=== PATIENT | female | born 1940 | race Caucasian/White ===

== ENCOUNTER 2017-03-01 18:13 | Emergency (ER) | payer MEDICARE, OTHER ==
--- NOTE | 2017-03-01 19:18 | ERNOTE ---
Abdominal HPI - Narrative Date of Service: 03/01/17 - General Chief Complaint: Constipation Time Seen by Provider: 03/01/17 18:32 Source: patient Exam Limitations: no limitations - Immun/Allergies/Home Medications Immunizatons: IMMUNIZATION HX Immunizations Up to Date Yes History of Influenza Vaccine No Hx Pneumococcal Vaccination No Allergies/Adverse Reactions: Allergies gabapentin Allergy (Severe, Verified 03/01/17 18:30) Other aspirin Adverse Reaction (Severe, Verified 03/01/17 18:30) Other Home Medications: HOME MEDICATIONS Carvedilol [Coreg] 6.25 mg PO BID 08/05/15 [Last Taken Unknown] Lorazepam [Ativan] 2 mg PO PRN PRN 08/05/15 [Last Taken Unknown] Lurasidone HCl [Latuda] 10 mg PO DAILY 08/05/15 [Last Taken Unknown] Multivitamin [Poly-Vitamin] 08/05/15 [Last Taken Unknown] Pravastatin Sodium 10 mg PO DAILY 08/05/15 [Last Taken Unknown] metFORMIN HCL [Glucophage] 1,000 mg PO BIDWM 08/05/15 [Last Taken Unknown] traMADol HCL [Ultram] 50 mg PO QID PRN 08/05/15 [Last Taken Unknown] Cefepime HCl [Maxipime] 2 gm IV Q12H 09/28/15 [Last Taken Unknown] Levothyroxine Sodium [Synthroid] 112 mcg PO DAILY 09/28/15 [Last Taken Unknown] Vancomycin HCl in Dextrose 5 % [Vancomycin-D5w 1.5 G/250 ml] 1.5 gm IV DAILY [Last Taken Unknown] - History of Present Illness Narrative: Pt. comes in with c/o constipation for two days. Pt. has a hx of constipation to the point of impaction frequently. Pt. also has a hx of obstruction which she had sx for 3 months ago. Pt. denies any abd pain, NVD, fever, or recent illness. Pt. states taht she took two dulcolax suppositories, two tablespoons of mineral oil and two fleets enemas without results. Review of Systems - Review of Systems Constitutional: Present: no symptoms reported. Absent: recent illness, fever, chills, weakness, fatigue, malaise EYE: Present: no symptoms reported ENT: Present: no symptoms reported Respiratory: Present: no symptoms reported. Absent: shortness of breath, cough , wheezing Cardiology: Present: no symptoms reported. Absent: chest pain, palpitations, edema Gastrointestinal/Abdominal: Present: constipation. Absent: nausea, vomiting, diarrhea, abdominal pain Genitourinary: Present: no symptoms reported Musculoskeletal: Present: no symptoms reported. Absent: back pain, joint pain Skin: Present: no symptoms reported. Absent: rash, change in hair/nails Neurological: Present: no symptoms reported. Absent: headache, dizziness/light- headedness, numbness, tingling All Other Systems: All systems neg except as marked - Patient's Past Medical History Patient History - Medical: Cataracts, Diabetes Type 2, Hypothyroidism Patient History - Cardiac/Respiratory: Myocardial Infarction Patient History - Cancer: No Hx of Cancer Patient History - Surgical Procedures: Appendectomy, Cholecystectomy, Coronary Bypass Surgery, Other Patient History - Other: None - Family History Mother Family History - Medical: , Arthritis, Diabetes Type 2 Family History - Cardiac/Respiratory: Myocardial Infarction Father Family History - Medical: Brother Family History - Medical: - Social History Living Situations: home Abuse History: No History of abuse Psych History: No pertinent hx Smoking Status: Never smoker Alcohol Use: none Drug Use: none - Immunizations Immunizations Up to Date: Yes Hx Pneumococcal Vaccination: No History of Influenza Vaccine: No Physical Exam - Physical Exam General Appearance: Present: wd/wn, alert, no apparent distress Head Exam: Present: normal inspection, no evidence of injury Eye Exam: Normal inspection: bilateral, PERRL: bilateral, EOMI: bilateral Ears, Nose, Throat: Present: normal ENT inspection, normal pharynx Neck: Present: normal inspection, nontender, supple, full range of motion. Absent: lymphadenopathy (R), lymphadenopathy (L) Respiratory: Present: no respiratory distress, normal breath sounds, no accessory muscle use, chest nontender, lungs clear Cardiovascular/Chest: Present: regular rate, rhythm, no murmur, normal peripheral pulses Gastrointestinal/Abdominal: Present: normal bowel sounds, nontender, no organomegaly, distended Rectal Exam: Present: normal rectal tone, tenderness - rectal. Absent: blood- streaked stool, mass, fecal impaction, hemorrhoids Back Exam: Present: normal inspection, normal range of motion, no CVA tenderness , no vertebral tenderness Extremity Exam: Present: normal inspection, non-tender, normal range of motion, no edema Neurological Exam: Present: alert, oriented, normal mood/affect, no motor/ sensory deficits Skin Exam: Present: normal color, warm/dry. Absent: pallor, skin rash ED Progress - Date and Time Seen: Date and Time: 03/01/17 20:18 Pt. had large soft bowel movement. - Vital Signs Patient's Vital Signs:: I have reviewed the patient's vital signs. Vital Signs: Vital Signs 03/01/17 18:25 Temperature 36.9 C Pulse Rate 67 Respiratory 18 Rate Blood Pressure 154/80 O2 Sat by Pulse 98 Oximetry - X-Ray X-Ray #1 X-Ray: abdomen Interpretation: Interp. by me X-ray Comments: No free air, no dilated loops of bowel, and no air fluid levels - Progress/Reassessment Chief Complaint: Constipation Progress:: Improved Departure Clinical Impression: Constipation Qualifiers: Constipation type: unspecified constipation type Qualified Code(s): K59.00 - Constipation, unspecified - Departure Disposition: Home self-care Condition: Good Instructions: Constipation, Adult, [id number] Additional Instructions: Please follow up with Dr Steven in 2-3 days. Please take 1 bottle of magnesium citrate tonight when you get home. Referrals: Lokesh Steven, [Primary Care Provider] -
[2017-03-01] MEDS ORDERED: MAGNESIUM CITRATE 300 ML BTL ONE (20:41)
[2017-03-01] MEDS: MAGNESIUM CITRATE 300 ML BTL PO ONE ×2 (20:50→20:56)
[2017-03-01 21:12] VITALS: BP 138/78
== END 2017-03-01 21:00 | disposition home or self-care (01) ==
LOC: ER 18:13
DX: K59.00 Constipation, unspecified (principal); I25.2 Old myocardial infarction; E03.9 Hypothyroidism, unspecified

== ENCOUNTER 2017-05-10 12:21 | Observation (INO) | payer MEDICARE, OTHER ==
[2017-05-10] MEDS ORDERED: NORMAL SALINE 1,000 ML IV ONE (12:34)
[2017-05-10 12:58] LABS: Hematocrit 43.1 % (37.0-47.0); Hemoglobin 14.6 gm/dL (12.5-16.0); Mean Corpuscular Hemoglobin 29.1 pg (27-31); Mean Corpuscular Hgb Conc 33.9 g/dl (32-36); Mean Platelet Volume 9.8 fl (6.0-9.5); Neutrophil % 72.4 % (42-75.0); Platelet Count 227 K/mm3 (150-450); Red Blood Count 5.01 M/mm3 (4.2-5.4); Red Cell Distribution Width 14.1 % (11.5-14.0); White Blood Count 8.2 K/mm3 (4.0-10.5)
[2017-05-10 13:08] LABS: Prothrombin Time (Patient) 11.4 Seconds (9.0-11.0)
[2017-05-10 13:14] LABS: INR 1.14 INR (0.90-1.10)
[2017-05-10 13:18] LABS: Urine Appearance Slightly Cloudy; Urine Bacteria 1+; Urine Bilirubin 3 mg/dl (NEGATIVE); Urine Blood 5 /ul (NEGATIVE); Urine Color Amber; Urine Hyaline Cast >25 /LPF; Urine Ketone 5 mg/dL (NEGATIVE); Urine Nitrite Negative (NEGATIVE); Urine Protein 15 mg/dL (NEGATIVE); Urine RBC 0-5 /hpf (0-5); Urine Specific Gravity >=1.030 SP.GR. (1.005-1.010); Urine Urobilinogen Normal (NORMAL); Urine WBC TRACE /hpf (0-5)
[2017-05-10 13:18] LABS: ALT 26 U/L (19-67); AST 31 U/L (0-48); Albumin * 3.4 gm/dl (3.4-5.0); Alkaline Phosphatase * 56 U/L (50-170); Anion Gap 14.7 mmol/L (6.8-13.8); BUN/Creatinine Ratio 18.1 (9.0-21.6); Bilirubin, Total 0.6 mg/dL (0.0-1.1); Blood Urea Nitrogen 23 mg/dL (3-23); Ca. Corrected For Albumin 8.9 mg/dL (8.4-10.2); Calcium * 8.7 mg/dL (7.9-10.9); Carbon Dioxide 26.2 mmol/L (24-32.6); Chloride 96 mmol/L (97-106); Glucose * 181 mg/dL (70-110); Potassium 3.9 mmol/L (3.4-4.6); Sodium 133 mmol/L (132-142); Total Protein 7.9 gm/dL (6.2-8.2); Troponin I Less than 0.017 ng/ml (0.00-0.10)
--- NOTE | 2017-05-10 13:22 | ERNOTE ---
Chest Pain/Cardiac HPI Date of Service: 05/10/17 Chief Complaint: Chest Pain Time Seen by Provider: 05/10/17 12:25 Source: patient Exam Limitations: no limitations Immunizations: IMMUNIZATION HX Immunizations Up to Date Yes History of Influenza Vaccine Yes Hx Pneumococcal Vaccination Yes Allergies/Adverse Reactions: Allergies aspirin Allergy (Intermediate, Verified 05/10/17 12:36) BLEEDING ULCERS gabapentin Adverse Reaction (Intermediate, Verified 05/10/17 12:36) HALLUCINATIONS Home Medications: HOME MEDICATIONS Pravastatin Sodium 10 mg PO HS 08/05/15 [Last Taken Unknown] Levothyroxine Sodium [Synthroid] 112 mcg PO DAILY 09/28/15 [Last Taken Unknown] Clopidogrel Bisulfate [Plavix] 75 mg PO DAILY 03/01/17 [Last Taken Unknown] Blood-Glucose Meter [Blood Glucose Monitoring] 1 each MC DAILY 05/04/17 [Last Taken Unknown] Carvedilol [Coreg] 6.25 mg PO BID 05/04/17 [Last Taken Unknown] Docusate Sodium [Colace] 200 mg PO HS PRN 05/04/17 [Last Taken Unknown] Fluticasone Propionate [Flonase] 2 spray NS DAILY 05/04/17 [Last Taken Unknown] Garlic [Odor Free Garlic] 100 mg PO DAILY 05/04/17 [Last Taken Unknown] Lurasidone HCl [Latuda] 10 mg PO DAILY 05/04/17 [Last Taken Unknown] Multivitamins [Multivitamin Jacy] 1 cap PO DAILY 05/04/17 [Last Taken Unknown] metFORMIN HCL [Glucophage] 1,000 mg PO BIDWM 05/04/17 [Last Taken Unknown] Levofloxacin [Levaquin] 500 mg PO DAILY 05/10/17 [Last Taken Unknown] Narrative: Patient presents to the ED for chest pain from the walk in clinic. She has been having off and on CP since last night. Nothing seems to make it worse clearly, possibly cough. She is not sure if she has had this before. She has been being treated for cough and bronchitis with ABc. This am she was very dizzy and nearly passed out. No feveres. She alsop relates a dark bowel movement this am. No syncope. Family feels she is more confused than normal. Timing: intermittent Severity/Quality: moderate Location: left chest Chest Pain Radiation: no radiation Activities at Onset: other - cough Modifying Factors - Improves: Present: nothing Modifying Factors - Worsens: Present: other - cough Aspirin Treatment Today: no aspirin today Associated Symptoms: Present: dizziness, cough. Absent: syncope, nausea, vomiting, abdominal pain Prior Treatment: Reports: recently seen, currently on antibiotics Review of Systems - Review of Systems Constitutional: Absent: fever EYE: Present: no symptoms reported ENT: Absent: sore throat Respiratory: Present: cough. Absent: shortness of breath Cardiology: Present: chest pain Gastrointestinal/Abdominal: Absent: abdominal pain Genitourinary: Absent: dysuria Skin: Absent: rash Neurological: Absent: weakness All Other Systems: All systems neg except as marked - Patient's Past Medical History Patient History - Medical: Cataracts, Diabetes Type 2, GERD, Hypothyroidism Patient History - Cardiac/Respiratory: Myocardial Infarction Patient History - Cancer: No Hx of Cancer Patient History - Surgical Procedures: Appendectomy, Cholecystectomy, Coronary Bypass Surgery, Other Patient History - Other: None LMP (females 10-50): Menopausal - Family History Mother Family History - Medical: , Arthritis, Diabetes Type 2 Family History - Cardiac/Respiratory: Myocardial Infarction Father Family History - Medical: Brother Family History - Medical: - Social History Living Situations: home Abuse History: No History of abuse Psych History: No pertinent hx Smoking Status: Never smoker Alcohol Use: sober Drug Use: none - Immunizations Immunizations Up to Date: Yes Hx Pneumococcal Vaccination: Yes History of Influenza Vaccine: Yes Physical Exam - Physical Exam General Appearance: Present: alert, no apparent distress Head Exam: Present: normal inspection, no evidence of injury Eye Exam: Normal inspection: bilateral, PERRL: bilateral Ears, Nose, Throat: Present: dry mucous membranes. Absent: pharyngeal erythema Neck: Present: normal inspection Respiratory: Present: no respiratory distress, normal breath sounds, no accessory muscle use, lungs clear, other - mild left anterior chest tenderness Cardiovascular/Chest: Present: regular rate, rhythm Gastrointestinal/Abdominal: Present: normal bowel sounds, nontender, nondistended, soft Back Exam: Present: normal range of motion Extremity Exam: Present: no edema, other - no claf tenderness Neurological Exam: Present: alert, no motor/sensory deficits Skin Exam: Present: normal color, warm/dry ED Progress - Results and Orders Patient's Lab Results:: I have reviewed the patient's lab results. - Vital Signs Patient's Vital Signs:: I have reviewed the patient's vital signs. Vital Signs: Vital Signs 05/10/17 05/10/17 12:25 13:11 Temperature 37.5 C Pulse Rate 83 84 Respiratory 17 18 Rate Blood Pressure 121/72 144/86 O2 Sat by Pulse 97 100 Oximetry - EKG EKG: NSR EKG read: Interp. by me EKG Comments: NSR rate 79. Non-specific ST/T wave changes, no evidence of STEMI - X-Ray X-Ray #1 X-Ray: chest Interpretation: Interp. by me X-ray Comments: I reviewed official radiology report and viewed images. - Progress/Reassessment Chief Complaint: Chest Pain Progress Note-Subjective: 05/10/17 13:45 I discussed results. IV ABx ordered. D/W Dr Steven, admit obs. Departure Clinical Impression: Chest pain, Dizziness, UTI (urinary tract infection) - Departure Disposition: [facility] Condition: Stable
[2017-05-10] MEDS ORDERED: LEVOFLOXACIN IN DEXTROSE 5 % 500 MG/100 ML BAG IV SCH (13:45)
[2017-05-10] MEDS ORDERED: DOCUSATE SODIUM 100 MG CAPSULE PO PRN (16:15)
[2017-05-10] MEDS ORDERED: BENZONATATE 100 MG CAPSULE PO PRN (17:14)
--- NOTE | 2017-05-10 17:14 | HP ---
Chief Complaint - Chief Complaint Date of Service: 05/10/17 Time of Service: 16:56 Chief Complaint: Chest Pain, Cough History of Present Illness: Nayeli is a 76 yo female with significant PMH of coronary artery disease with CABG, Diabetes Mellitus Type II, and recently declining memory. She has had progressive shortness of breath, cough, and chest pain over the last two weeks. She was started on antibiotics last week in the Walk In [facility], but on follow up with the Walk in clinic this week she had not been taking it appropriately. She was given a new prescription for Levaquin, but on reports today it does not appear she has been taking this daily as well. Last night and today she started having more significant chest pain that she describes as pain with coughing. Due to her history of Coronary Artery Disease with CABG she presented to the ER with her chest pain. Initial evaluation in the ER shows no significant ECG changes and a undetectable troponin. Chest xray shows bronchitis , no pneumonia. No leukocytosis. Of note she has also had lumbar back pain from spinal stenosis and was scheduled for WINSTON today. She was supposed to be holding plavix prior to WINSTON, but she reports taking Plavix thinking it was her blood pressure medication. She did not go to her scheduled WINSTON today as she was in the Emergency room and would like to clear up her cough before she reschedules her WINSTON. She does report back is still hurting. - Patient's Past Medical History Patient History - Medical: Cataracts, Diabetes Type 2, GERD, Hypothyroidism, Other - Dementia, Lumbar Spinal Stenosis Patient History - Cardiac/Respiratory: Myocardial Infarction Patient History - Cancer: No Hx of Cancer Patient History - Surgical Procedures: Appendectomy, Cholecystectomy, Coronary Bypass Surgery, Other Patient History - Other: None LMP (females 10-50): Menopausal - Family History Mother Family History - Medical: , Arthritis, Diabetes Type 2 Family History - Cardiac/Respiratory: Myocardial Infarction Father Family History - Medical: Brother Family History - Medical: - Social History Living Situations: home Abuse History: No History of abuse Psych History: No pertinent hx Smoking Status: Never smoker Have you smoked in the past 12 months: No Alcohol Use: sober Drug Use: none - Immunizations Immunizations Up to Date: Yes Hx Pneumococcal Vaccination: Yes History of Influenza Vaccine: Yes Review Of Systems (GEN) - Review of Systems Generalized/Overall Review: Present: Weakness, Chills, Fever, Malaise, Diaphoresis, Fatigue EENTM: Present: No Symptoms Reported Respiratory: Present: Cough, Shortness of Breath Cardiac: Present: Chest Pain. Absent: Edema, Palpitations Abdominal: Present: Vomiting, Melena. Absent: Nausea Musculoskeletal: Present: Back Pain Neurological: Present: Anxiety, Weakness Skin: Present: No Symptoms Reported Endocrine: Present: No Symptoms Reported Immunizations: IMMUNIZATION HX Immunizations Up to Date Yes History of Influenza Vaccine Yes Hx Pneumococcal Vaccination Yes Allergies/Adverse Reactions: Allergies Allergy/AdvReac Type Severity Reaction Status Date / Time aspirin Allergy Intermediate BLEEDING Verified 05/10/17 14:57 ULCERS gabapentin AdvReac Intermediate HALLUCINATI Verified 05/10/17 14:57 ONS Home Medications: HOME MEDICATIONS Pravastatin Sodium 10 mg PO HS 08/05/15 [Last Taken Unknown] Levothyroxine Sodium [Synthroid] 112 mcg PO DAILY 09/28/15 [Last Taken Unknown] Clopidogrel Bisulfate [Plavix] 75 mg PO DAILY 03/01/17 [Last Taken Unknown] Blood-Glucose Meter [Blood Glucose Monitoring] 1 each MC DAILY 05/04/17 [Last Taken Unknown] Carvedilol [Coreg] 6.25 mg PO BID 05/04/17 [Last Taken Unknown] Docusate Sodium [Colace] 200 mg PO HS PRN 05/04/17 [Last Taken Unknown] Fluticasone Propionate [Flonase] 2 spray NS DAILY 05/04/17 [Last Taken Unknown] Garlic [Odor Free Garlic] 100 mg PO DAILY 05/04/17 [Last Taken Unknown] Lurasidone HCl [Latuda] 10 mg PO DAILY 05/04/17 [Last Taken Unknown] Multivitamins [Multivitamin Jacy] 1 cap PO DAILY 05/04/17 [Last Taken Unknown] metFORMIN HCL [Glucophage] 1,000 mg PO BIDWM 05/04/17 [Last Taken Unknown] Levofloxacin [Levaquin] 500 mg PO DAILY 05/10/17 [Last Taken Unknown] Exam - Exam Vital Signs: Vital Signs - Last Taken Temp 36.3 C L 05/10/17 14:13 Pulse 77 05/10/17 15:19 Resp 18 05/10/17 14:13 BP 173/86 05/10/17 14:13 Pulse Ox 97 05/10/17 14:13 Constitutional: Present: Alert, Oriented x3, Cooperative, Other - Mild anxiety ENT Exam: Present: hearing grossly normal Eye Exam: bilateral eye: normal inspection Respiratory: Present: lungs clear, normal breath sounds, no respiratory distress Cardiovascular/Chest: Present: regular rate, rhythm, no edema, no murmur Abdomen: Present: Normal bowel sounds, soft, nontender, nondistended Extremity: Present: normal inspection, no pedal edema Skin Exam: Present: normal color, warm/dry, no cyanosis Appearance: Present: appropriate appearance, appropriate insight, impaired recent memory Eye contact: Present: cooperative, good eye contact, normal speech Thoughts: Present: normal thought pattern, no apparent hallucination Diagnostic Studies: Laboratory Results WBC 8.2 K/mm3 (4.0-10.5) 05/10/17 12:47 RBC 5.01 M/mm3 (4.2-5.4) 05/10/17 12:47 Hgb 14.6 gm/dL (12.5-16.0) 05/10/17 12:47 Hct 43.1 % (37.0-47.0) 05/10/17 12:47 MCV 86.0 fl (78-100) 05/10/17 12:47 MCH 29.1 pg (27-31) 05/10/17 12:47 MCHC 33.9 g/dl (32-36) 05/10/17 12:47 RDW 14.1 % (11.5-14.0) H 05/10/17 12:47 Plt Count 227 K/mm3 (150-450) 05/10/17 12:47 MPV 9.8 fl (6.0-9.5) H 05/10/17 12:47 Immature Gran % (Auto) 0.40 % (0.001-0.429) 05/10/17 12:47 Immature Gran # (Auto) 0.03 K/mm3 (0.000-0.0310) 05/10/17 12:47 Neutrophils % 72.4 % (42-75.0) 05/10/17 12:47 Lymphocytes % 15.4 % (20-51) L 05/10/17 12:47 Monocytes % 11.2 % (0.0-9) H 05/10/17 12:47 Eosinophils % 0.1 % (0.0-3.0) 05/10/17 12:47 Basophils % 0.5 % (0.0-1.0) 05/10/17 12:47 Nucleated RBC % 0.0 k/mm3 (0-1) 05/10/17 12:47 Neutrophils # 6.0 K/mm3 (1.3-6.0) 05/10/17 12:47 Lymphocytes # 1.3 k/mm3 (1.5-3.5) L 05/10/17 12:47 Monocytes # 0.9 k/mm3 (0.0-1.0) 05/10/17 12:47 Eosinophils # 0.0 k/mm3 (0.0-0.7) 05/10/17 12:47 Absolute Basophils 0.0 k/mm3 (0.0-0.1) 05/10/17 12:47 PT 11.4 Seconds (9.0-11.0) H 05/10/17 12:47 INR (Anticoag Therapy) 1.14 INR (0.90-1.10) H 05/10/17 12:47 Sodium 133 mmol/L (132-142) 05/10/17 12:47 Plasma Sodium 134 mmol/L (130-142) 05/10/17 12:47 Potassium 3.9 mmol/L (3.4-4.6) 05/10/17 12:47 Chloride 96 mmol/L (97-106) L 05/10/17 12:47 Carbon Dioxide 26.2 mmol/L (24-32.6) 05/10/17 12:47 Anion Gap 14.7 mmol/L (6.8-13.8) H 05/10/17 12:47 BUN 23 mg/dL (3-23) 05/10/17 12:47 Creatinine 1.27 mg/dL (0.4-1.4) 05/10/17 12:47 Est GFR (Non-Af Amer) 44 mL/min (60-130) L D 05/10/17 12:47 BUN/Creatinine Ratio 18.1 (9.0-21.6) 05/10/17 12:47 Random Glucose 181 mg/dL (70-110) H 05/10/17 12:47 Lactic Acid, Venous 1.8 mmol/L (0.4-1.9) 05/10/17 15:45 Calcium 8.7 mg/dL (7.9-10.9) 05/10/17 12:47 Calcium Adj for Albumin 8.9 mg/dL (8.4-10.2) 05/10/17 12:47 Total Bilirubin 0.6 mg/dL (0.0-1.1) 05/10/17 12:47 AST 31 U/L (0-48) 05/10/17 12:47 ALT 26 U/L (19-67) 05/10/17 12:47 Alkaline Phosphatase 56 U/L (50-170) 05/10/17 12:47 Troponin I Less than 0.017 ng/ml (0.00-0.10) 05/10/17 12:47 Total Protein 7.9 gm/dL (6.2-8.2) 05/10/17 12:47 Albumin 3.4 gm/dl (3.4-5.0) 05/10/17 12:47 Urine Color Estefanía 05/10/17 12:37 Urine Appearance Slightly cloudy 05/10/17 12:37 Urine pH 5.0 pH (5.0-7.0) 05/10/17 12:37 Ur Specific [place] >=1.030 SP.GR. (1.005-1.010) 05/10/17 12:37 Urine Protein 15 mg/dL (NEGATIVE) H 05/10/17 12:37 Urine Glucose (UA) Negative mg/dL (NEGATIVE) 05/10/17 12:37 Urine Ketones 5 mg/dL (NEGATIVE) 05/10/17 12:37 Urine Blood 5 /ul (NEGATIVE) H 05/10/17 12:37 Urine Nitrate Negative (NEGATIVE) 05/10/17 12:37 Urine Bilirubin 3 mg/dl (NEGATIVE) H 05/10/17 12:37 Urine Ictotest Negative (NEGATIVE) 05/10/17 12:37 Prot Sulfosalicylic Acd 1+ mg/dL (0) 05/10/17 12:37 Urine Urobilinogen Normal EU/dl (NORMAL) 05/10/17 12:37 Ur Leukocyte Esterase Negative /ul (NEGATIVE) 05/10/17 12:37 Urine RBC 0-5 /hpf (0-5) 05/10/17 12:37 Urine WBC Trace /hpf (0-5) H 05/10/17 12:37 Ur Epithelial Cells 10-25 /hpf (0-5) H 05/10/17 12:37 Urine Bacteria 1+ (NONE) H 05/10/17 12:37 Hyaline Casts >25 /LPF (NONE) H 05/10/17 12:37 Urine Culture Comments No culture indicated 05/10/17 12:37 Stool Occult Blood Negative 05/10/17 13:10 Assessment/Plan - Narrative Narrative: Nayeli is a 76 yo female with: 1) Chest Pain - Risk factors of CAD with CABG, DMII, will admit to observation. Initial evaluation negative for acute [place]. Will get serial troponin. Will monitor on telemetry. I suspect chest pain is secondary to bronchitis. 2) Acute Bronchitis - Treat with Levaquin 500mg Daily x 10 days. Will start this from Day 1. Although she was given this rx days ago, unclear if she has been taking this appropriately. No wheezing on exam no albuterol or steroids needed. No pneumonia on chest xray. 3) Dementia - Patient showing signs of dementia. This is worsening per reports from son. She has had a lot of confusion lately that may be precipitated from infection or the progression of her dementia. Will monitor. Consider aricept vs sertraline. She would benefit from home health for medication management. 4) Generalized Anxiety Disorder/Depression - I believe she would benefit from starting Sertraline. Will consider starting this at discharge. Symptoms may be exacerbated from acute infection but I believe she has underlying anxiety/ depression. 5) Diabetes - Continue home meds, hold metformin while in the hospital. 6) Social - Will admit to observation to evaluate for acute [place]. Expect 1 midnight stay. Plan to discharge to home tomorrow. Will look into home discharge with home health for medication management, possible PT for strengthening. - Assessment/Plan (1) Acute bronchitis Problem: Acute (2) Dementia Problem: Acute (3) Generalized anxiety disorder Problem: Acute (4) Depression Problem: Acute (5) Diabetes mellitus type II, non insulin dependent Problem: Acute (6) Chest pain Problem: Acute
[2017-05-10] MEDS ORDERED: SIMVASTATIN 5 MG TABLET PO SCH (21:00)
[2017-05-10] MEDS: CARVEDILOL 6.25 MG TABLET PO SCH (22:03)
[2017-05-11 06:08] LABS: Hemoglobin 13.2 gm/dL (12.5-16.0); Mean Cell Volume 84.6 fl (78-100); Mean Corpuscular Hemoglobin 29.4 pg (27-31); Mean Corpuscular Hgb Conc 34.7 g/dl (32-36); Mean Platelet Volume 10.3 fl (6.0-9.5); Neutrophil # 2.3 K/mm3 (1.3-6.0); Platelet Count 180 K/mm3 (150-450); Red Blood Count 4.49 M/mm3 (4.2-5.4); Red Cell Distribution Width 13.9 % (11.5-14.0); White Blood Count 4.2 K/mm3 (4.0-10.5)
[2017-05-11 06:38] LABS: Albumin * 2.7 gm/dl (3.4-5.0); Anion Gap 11.4 mmol/L (6.8-13.8); BUN/Creatinine Ratio 20.4 (9.0-21.6); Bilirubin, Total 0.5 mg/dL (0.0-1.1); Calcium * 8.3 mg/dL (7.9-10.9); Carbon Dioxide 25.3 mmol/L (24-32.6); Potassium 3.7 mmol/L (3.4-4.6); Total Protein 6.6 gm/dL (6.2-8.2)
[2017-05-11] MEDS ORDERED: LEVOTHYROXINE SODIUM 112 MCG TABLET PO SCH (07:00)
[2017-05-11] MEDS ORDERED: CLOPIDOGREL BISULFATE 75 MG TABLET PO SCH (09:00)
[2017-05-11] MEDS ORDERED: LURASIDONE HCL 10 MG PO SCH (09:00)
[2017-05-11] MEDS ORDERED: LEVOFLOXACIN 500 MG TABLET PO SCH (09:00)
[2017-05-11] MEDS ORDERED: MULTIVITAMINS 1 CAP CAPSULE PO SCH (09:00)
[2017-05-11] MEDS ORDERED: FLUTICASONE PROPIONATE 120 SPRAY INHALER NS SCH (09:00)
[2017-05-11] MEDS: CARVEDILOL 6.25 MG TABLET PO SCH (09:26)
[2017-05-11 10:20] VITALS: BP 133/74
--- NOTE | 2017-05-11 12:01 | DS ---
(1) Acute bronchitis Problem: Acute (2) Dementia Problem: Acute (3) Generalized anxiety disorder Problem: Acute (4) Depression Problem: Acute (5) Diabetes mellitus type II, non insulin dependent Problem: Acute (6) Chest pain Problem: Acute Description of Stay: Nayeli was admitted to observation due to shortness of breath, chest pain, and increased confusion. Chest xray and bloodwork obtained indicated source was likely from acute bronchitis. She was negative for acute [place] and repeat troponins showed no evidence of myocardial injury. She was treated with breathing treatments and antibiotics and improved. Due to being admitted she missed her scheduled WINSTON, however due to the confusion she had been holding her Coreg instead of the plavix. Feeling better she was discharged to home the following day and the WINSTON will be rescheduled once the bronchitis has resolved. Procedures Performed: none Discharge Disposition: Home self care Disposition: Home self-care Condition: Good Discharge Activity: Activity as tolerated Discharge Diet: Consistent carbs Referrals: Lokesh Steven DO [Primary Care Provider] - One Week Problem Oriented Discharge Instructions to Patient/Family: Acute Bronchitis, [id number] Additional Patient Instructions (free text): -Please make TCM appointment unless care home discharge. Thank you! Gissel @ [phone]. Follow-up with Dr. Steven on 05/21/17 10:00 am. [facility], please call and fax discharge information. Complete Home Medications List: Complete Home Medication List: Pravastatin Sodium 10 mg PO HS 08/05/15 Levothyroxine Sodium [Synthroid] 112 mcg PO DAILY 09/28/15 Clopidogrel Bisulfate [Plavix] 75 mg PO DAILY 03/01/17 Blood-Glucose Meter [Blood Glucose Monitoring] 1 each MC DAILY 05/04/17 Carvedilol [Coreg] 6.25 mg PO BID 05/04/17 Docusate Sodium [Colace] 200 mg PO HS PRN 05/04/17 Fluticasone Propionate [Flonase] 2 spray NS DAILY 05/04/17 Garlic [Odor Free Garlic] 100 mg PO DAILY 05/04/17 Lurasidone HCl [Latuda] 10 mg PO DAILY 05/04/17 Multivitamins [Multivitamin Jacy] 1 cap PO DAILY 05/04/17 metFORMIN HCL [Glucophage] 1,000 mg PO BIDWM 05/04/17
== END 2017-05-11 13:12 | disposition home or self-care (01) ==
LOC: ER 12:21 → MS 13:42
PROVIDERS: ADMIT Family Medicine; ATTEND Family Medicine
DX: J20.9 Acute bronchitis, unspecified (principal); F03.90 Unspecified dementia, unspecified severity, without behavioral disturbance, psychotic disturbance, mood disturbance, and anxiety; F41.8 Other specified anxiety disorders; E11.9 Type 2 diabetes mellitus without complications; R07.9 Chest pain, unspecified; I25.810 Atherosclerosis of coronary artery bypass graft(s) without angina pectoris; I25.2 Old myocardial infarction; E03.9 Hypothyroidism, unspecified; Z68.29 Body mass index [BMI] 29.0-29.9, adult
CPT/HCPCS: 36415; 71046; 80053; 81001; 82272; 83605; 84484; 85025; 85610; 87040; 87086; 93005; 99285; G0378

== ENCOUNTER 2017-05-29 08:52 | Day surgery (SDC) | payer MEDICARE, OTHER ==
[2017-05-29 09:07] VITALS: BP 148/63
--- NOTE | 2017-05-29 15:44 | OR ---
Anesthesia Pre Procedure Eval Date of Service: 05/29/17 Pre Procedure Evaluation: Last Vital Signs Temp 37.3 C 05/29/17 09:06 Pulse 61 05/29/17 09:06 Resp 16 05/29/17 09:06 BP 148/63 05/29/17 09:06 Pulse Ox 99 05/29/17 09:06 Anesthesia Pre Procedure Evaluation DATE: 05/29/2017. TIME: 1015. INDICATIONS: Low back and right leg pain. PAST MEDICAL HISTORY: This is a 76-year-old female with a history of chronic back pain and right leg discomfort. She has had multiple steroid procedures performed by her physician in [place] as well as 1 CT guided neural foraminal injection performed in radiology in the fall of 2016. She states she had little to no relief with the last procedure performed. The patient wishes that we can perform the same procedure that she had in [place]. There is a little confusion as to the actual procedure and medications used so I have obtained patient's consent for transfer of medical records, and contacted her prior provider for reports of her last procedures. EXAM: CT report and films were reviewed. ASSESSMENT OF MEDICAL STATUS: O.K. to proceed with steroid injection after reviewing her past steroid injections. PLANNED PROCEDURE: Pending. Home Medications: HOME MEDICATIONS Pravastatin Sodium 10 mg PO HS 08/05/15 [Last Taken Unknown] Levothyroxine Sodium [Synthroid] 112 mcg PO DAILY 09/28/15 [Last Taken Unknown] Clopidogrel Bisulfate [Plavix] 75 mg PO DAILY 03/01/17 [Last Taken 05/22/17] Blood-Glucose Meter [Blood Glucose Monitoring] 1 each MC DAILY 05/04/17 [Last Taken Unknown] Carvedilol [Coreg] 6.25 mg PO BID 05/04/17 [Last Taken Unknown] Docusate Sodium [Colace] 200 mg PO HS PRN 05/04/17 [Last Taken Unknown] Fluticasone Propionate [Flonase] 2 spray NS DAILY 05/04/17 [Last Taken Unknown] Garlic [Odor Free Garlic] 100 mg PO DAILY 05/04/17 [Last Taken Unknown] Lurasidone HCl [Latuda] 10 mg PO DAILY 05/04/17 [Last Taken Unknown] Multivitamins [Multivitamin Jacy] 1 cap PO DAILY 05/04/17 [Last Taken Unknown] metFORMIN HCL [Glucophage] 1,000 mg PO BIDWM 05/04/17 [Last Taken Unknown]
== END 2017-05-29 08:53 | disposition home or self-care (01) ==
LOC: AMB 08:52
PROVIDERS: ATTEND Family Medicine
DX: M54.5 Low back pain (principal)

== ENCOUNTER 2017-05-31 11:12 | Day surgery (SDC) | payer MEDICARE, OTHER ==
[2017-05-31] MEDS ORDERED: TRIAMCINOLONE ACETONIDE 40 MG/ML VIAL IM ONE (13:30)
[2017-05-31] MEDS ORDERED: LIDOCAINE HCL/PF 5 ML VIAL IJ ONE (13:30)
--- NOTE | 2017-05-31 13:33 | OR ---
Anesthesia Pre Procedure Eval Date of Service: 05/31/17 Pre Procedure Evaluation: Last Vital Signs Temp 37.6 C H 05/31/17 11:30 Pulse 58 L 05/31/17 11:30 Resp 16 05/31/17 11:30 BP 144/77 05/31/17 11:30 Pulse Ox 98 05/31/17 11:30 Anesthesia Pre Procedure Evaluation DATE: 05/31/2017 TIME: 1255 INDICATIONS: Right low back pain PAST MEDICAL HISTORY: Ms. Hernandez has had a long, she but the pain does become extremely incapacitating at times. She has been scheduled several times previously and has been canceled for multiple reasons, most recent of which is confusion over the course of her treatment. According to Ms. Hernandez she had 2 previous injections nearly 7 years ago, the first of which was of no help and the second was of great relief for a long period of time. According to the notes of Dr. Nix she received an L3 selective nerve root injection both times , and both times the medication combination was Kenalog 40 mg with 3 mL of saline. When I met Ms. Hernandez she was insistent that medicine be identical and one of the medicines was Novocain. After a long discussion with her and showing her both records of the injections she agreed to have Kenalog 40 mg with a local medication for the injection. It was pointed out that the Kenalog is not recommended by [employer] to be for any neuraxial type injection. Also of note I compared the CT-guided neural foraminal injection which she received in our x-ray department in the medicines were used as well. She was quite animated and return at only 1 injection out of all of these ever get her any good and she was trying to re-create the same medicines and procedure which was performed she did receive good relief 7 years ago. History of GERD: No History of smoking:No History of sleep apnea:No EXAM: Heart regular; lungs clear ASSESSMENT OF MEDICAL STATUS: History is very difficult to achieve, but her symptoms lead me to believe that this may be of some benefit to her. It is hard to tell whether she may be better served with any other type procedure, perhaps a standard epidural injection, but I am agreeable to proceeding as the patient wishes. PLANNED PROCEDURE: Right L3 selective nerve root injection. Transforaminal approach Home Medications: HOME MEDICATIONS Pravastatin Sodium 10 mg PO HS 08/05/15 [Last Taken Unknown] Levothyroxine Sodium [Synthroid] 112 mcg PO DAILY 09/28/15 [Last Taken Unknown] Clopidogrel Bisulfate [Plavix] 75 mg PO DAILY 03/01/17 [Last Taken 05/22/17] Blood-Glucose Meter [Blood Glucose Monitoring] 1 each MC DAILY 05/04/17 [Last Taken Unknown] Carvedilol [Coreg] 6.25 mg PO BID 05/04/17 [Last Taken Unknown] Docusate Sodium [Colace] 200 mg PO HS PRN 05/04/17 [Last Taken Unknown] Fluticasone Propionate [Flonase] 2 spray NS DAILY 05/04/17 [Last Taken Unknown] Multivitamins [Multivitamin Jacy] 1 cap PO DAILY 05/04/17 [Last Taken Unknown] metFORMIN HCL [Glucophage] 1,000 mg PO BIDWM 05/04/17 [Last Taken Unknown]
--- NOTE | 2017-05-31 13:39 | OR ---
Anesthesia Procedure Note - Anesthesia Procedure Note Date of Service: 05/31/17 Narrative: Vital Signs - Last Taken Temp 37.6 C H 05/31/17 11:30 Pulse 58 L 05/31/17 11:30 Resp 16 05/31/17 11:30 BP 144/77 05/31/17 11:30 Pulse Ox 98 05/31/17 11:30 05/31/17 13:34 ANESTHESIA PROCEDURE NOTE Date of Procedure: 05/31/2017 Time of procedure: 1310. Performed by: KAR Adams CRNA, MSN Wet Pan Operator: Monica Villalobos RN. Preprocedure diagnosis: Right L3 transforaminal injection. Post procedure diagnosis: Same. Procedure: Transforaminal block right L3. Indications: Low back pain, right sided. Findings: See below. Details of the procedure: The patient was brought to OR #2 and was placed in the prone position. The back was prepped with DuraPrep and draped in a sterile fashion. The lumbar area was under fluoroscopy and after adjusting the C-arm to a plane perpendicular to the intended lumbar vertebral level, a straight needle hdez was used to identify the level of treatment. An oblique view was then obtained to identify the angle of entry and the area was localized with 1% lidocaine solution and a 22ga Toribio needle oriented down the beam of the fluoroscopy tube. Reorienting the C-arm to a lateral view the needle was then positioned to the upper part of the neural foraminal opening and 0.5 mL of Isovue-200 was injected demonstrating a distribution following the corresponding nerve and some retrograde into the epidural area. 1.5 mL of lidocaine 1% preservative-free with 5 mg of preservative-free dexamethasone was then injected, the stylette was replaced and the spinal needle removed. A Band -Aid was then applied to the injection site,the patient returned to the OR stretcher with good relief of pain and was then returned to [facility]. Fluoroscopy time: 33 seconds Energy dosage: 15.54mGy EBL: Minimal/negative. Fluids: N/A. Specimen: N/A. Pain level: Preprocedure 3/10 post procedure 0/10. Post procedure condition: The patient tolerated the procedure well. No complications were noted. Thank you for this consultation. Blanco Schilling CRNA, [employer], MSN
[2017-05-31 14:08] VITALS: BP 128/78
== END 2017-05-31 11:13 | disposition home or self-care (01) ==
LOC: AMB 11:12
PROVIDERS: ATTEND Family Medicine
PROC: 3E0R3BZ Introduction of Anesthetic Agent into Spinal Canal, Percutaneous Approach (ICD-10-PCS; principal; 2017-05-31)
PROC: 3E0R33Z Introduction of Anti-inflammatory into Spinal Canal, Percutaneous Approach (ICD-10-PCS; 2017-05-31)
DX: M54.5 Low back pain (principal); Z68.31 Body mass index [BMI] 31.0-31.9, adult

== ENCOUNTER 2020-05-01 12:22 | Observation (INO) ==
--- NOTE | 2020-05-01 13:15 | ERNOTE ---
<Tomas Rosas - Last Filed: 05/01/20 20:14> Abdominal HPI - General Chief Complaint: Constipation Time Seen by Provider: 05/01/20 13:02 Source: patient, family Exam Limitations: dementia - Immun/Allergies/Home Medications Immunizatons: IMMUNIZATION HX Immunizations Up to Date Yes History of Influenza Vaccine Yes Hx Pneumococcal Vaccination Yes Allergies/Adverse Reactions: Allergies aspirin Allergy (Intermediate, Verified 05/01/20 12:56) BLEEDING ULCERS gabapentin Adverse Reaction (Intermediate, Verified 05/01/20 12:56) HALLUCINATIONS Home Medications: HOME MEDICATIONS * Patient uses [employer] pill pack service 0 .ROUTE .MEDSUPPLY #1 ea 07/23/19 [Last Taken Unknown] levothyroxine 125 mcg tablet 125 mcg PO DAILY #30 tab 02/18/20 [Last Taken Unknown] insulin glargine 100 unit/mL subcutaneous solution 20 unit SUBCUT QPM #10 ml 03/18/20 [Last Taken Unknown] insulin syringe-needle U-100 1 mL 31 gauge x 516" See Rx Instructions .ROUTE .MEDSUPPLY #100 ea 03/18/20 [Last Taken Unknown] alcohol swabs 1 pad TP DAILY #100 ea 03/25/20 [Last Taken Unknown] blood sugar diagnostic See Rx Instructions .ROUTE .MEDSUPPLY #100 ea 03/25/20 [Last Taken Unknown] blood-glucose meter See Rx Instructions .ROUTE .MEDSUPPLY #1 ea 03/25/20 [Last Taken Unknown] insulin glargine 100 unit/mL (3 mL) subcutaneous pen 40 unit SUBCUT QPM #12 ml 03/25/20 [Last Taken Unknown] lancets 31 gauge See Rx Instructions .ROUTE .MEDSUPPLY #100 ea 03/25/20 [Last Taken Unknown] pen needle, diabetic 31 gauge x 5/16" See Rx Instructions .ROUTE .MEDSUPPLY #50 ea 03/25/20 [Last Taken Unknown] - History of Present Illness Narrative: Patient brought in by her son with chief complaint of constipation over the past couple of days. He has given her extra doses of MiraLAX, 2 doses of milk of magnesia, a glycerin suppository and tried giving her magnesium citrate which she was not able to drink it all. Patient states it hurts when she tries to use the bathroom Timing: getting worse Quality: moderate, severe, aching, cramping Associated Symptoms: Present: denies symptoms Review of Systems - Review of Systems Constitutional: Present: recent illness - Had Covid almost 4 weeks ago EYE: Absent: vision changes Respiratory: Absent: shortness of breath, cough Gastrointestinal/Abdominal: Present: See HPI. Absent: nausea, vomiting Genitourinary: Absent: frequency, dysuria Endocrine: Present: intolerance to cold Medical History (Last Reviewed 05/01/20 @ 13:13 by Tomas Rosas DO) Coronary artery disease involving la posta coronary artery of la posta heart without angina pectoris (Chronic) Onset Date: Unknown Incontinence of urine (Chronic) Onset Date: Unknown Hypertension (Chronic) Onset Date: Unknown Hyperlipemia (Chronic) Onset Date: Unknown Diabetes mellitus (Chronic) Onset Date: Unknown type [address] (Chronic) Onset Date: Unknown right ear Carotid artery disease (Chronic) Onset Date: Unknown Mediastinitis Onset Date: ~11/2014 Rigorously treated for mediastinitis secondary to a retained foreign body as well as 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 Non-ST elevated myocardial infarction Onset Date: Unknown Surgical History: Surgical History (Last Reviewed 05/01/20 @ 13:13 by Tomas Rosas DO) H/O dilation and curettage Onset Date: Unknown H/O oophorectomy Onset Date: Unknown H/O thyroidectomy Onset Date: Unknown History of cataract surgery Onset Date: Unknown History of cochlear implant Onset Date: Unknown 2015 [facility] History of coronary artery bypass graft Onset Date: ~11/2014 LAW graft to the LAD saphenous vein graft to the diagonal, saphenous vein graft obtuse marginal, saphenous vein graft right distal coronary artery. 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 Absent: guarding, rebound Extremity Exam: Present: normal inspection, no edema Neurological Exam: Present: alert, disoriented to place - Has dementia that has worsened since her Covid infection Skin Exam: Present: normal color, warm/dry Lymphatic Exam: Present: no adenopathy Progress - Vital Signs Patient's Vital Signs:: I have reviewed the patient's vital signs. Vital Signs: Vital Signs 05/01/20 12:51 Temperature 36.4 C Pulse Rate 83 Respiratory Rate 20 Blood Pressure 136/69 O2 Sat by Pulse Oximetry 90 L - X-Ray X-Ray #1 X-Ray: abdomen Interpretation: Reviewed by me X-ray Comments: IMPRESSION: NO ACUTE ABDOMINAL PATHOLOGY IDENTIFIED. Electronically signed by Rubio Carvalho M.D.. - Progress/Reassessment Chief Complaint: Constipation Progress Note-Subjective: 05/01/20 13:59 Attempted rectal exam patient was very tender and was not well for rectal exam. We will use some Urojet to help make the exam more tolerable and see if we can do at least a fleets enema. 05/01/20 20:16 After multiple attempts with fleets enema and medical molasses enema we were not able to relieve her impaction. Patient handed off to Dr. Cardoza for further treatment and possibly admission. - Transfer of Care Physician Sign Out: Tomas Rosas Receiving Physician: Fam Cardoza Expected Disposition: Admit Departure Clinical Impression: Obstipation, Fecal impaction in rectum - Departure Disposition: Short Term Hospital Inpatient Condition: Stable Additional Instructions: Admit Clay Referrals: Lokesh Steven DO [Primary Care Provider] - <Fam Cardoza - Last Filed: 05/01/20 20:30> Abdominal HPI - Narrative Date of Service: 05/01/20 - Immun/Allergies/Home Medications Immunizatons: IMMUNIZATION HX Immunizations Up to Date Yes History of Influenza Vaccine Yes Hx Pneumococcal Vaccination Yes Medical History (Last Reviewed 05/01/20 @ 13:13 by Tomas Rosas DO) Coronary artery disease involving la posta coronary artery of la posta heart without angina pectoris (Chronic) Onset Date: Unknown Incontinence of urine (Chronic) Onset Date: Unknown Hypertension (Chronic) Onset Date: Unknown Hyperlipemia (Chronic) Onset Date: Unknown Diabetes mellitus (Chronic) Onset Date: Unknown type [address] (Chronic) Onset Date: Unknown right ear Carotid artery disease (Chronic) Onset Date: Unknown Mediastinitis Onset Date: ~11/2014 Rigorously treated for mediastinitis secondary to a retained foreign body as well as 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 Non-ST elevated myocardial infarction Onset Date: Unknown Surgical History: Surgical History (Last Reviewed 05/01/20 @ 13:13 by Tomas Rosas DO) H/O dilation and curettage Onset Date: Unknown H/O oophorectomy Onset Date: Unknown H/O thyroidectomy Onset Date: Unknown History of cataract surgery Onset Date: Unknown History of cochlear implant Onset Date: Unknown 2015 [facility] History of coronary artery bypass graft Onset Date: ~11/2014 LAW graft to the LAD saphenous vein graft to the diagonal, saphenous vein graft obtuse marginal, saphenous vein graft right distal coronary artery. 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 Military Service: No Tobacco: Smoking Status: Never smoker Alcohol: alcohol intake: never Substance Use: substance use type: does not use Dietary Habits: caffeine: Yes Progress - Vital Signs Vital Signs: Vital Signs 05/01/20 12:51 05/01/20 18:39 Temperature 36.4 C Pulse Rate 83 77 Respiratory Rate 20 16 Blood Pressure 136/69 145/77 O2 Sat by Pulse Oximetry 90 L 100 Plan - Plan Plan: After multiple tries with various enemas patient unable to pass stool becomes anxious and agitated for the pain therefore we will admit her overnight and continue the enemas hopefully break it break up the stool ball.dr Browning
[2020-05-01] MEDS ORDERED: LIDOCAINE HCL 10 APPL CARTRIDGE MM ONE (13:59)
[2020-05-01] MEDS ORDERED: SODIUM PHOSPHATE,MONO-DIBASIC 1 ENEMA BTL RC ONE (14:15)
[2020-05-01] MEDS ORDERED: MORPHINE SULFATE 2 MG/ML DISP.SYRIN IM ONE (15:44)
[2020-05-01] MEDS ORDERED: NORMAL SALINE 1,000 ML IV ONE (19:06)
[2020-05-01] MEDS ORDERED: MINERAL OIL 1 ENEMA BTL RC ONE (21:11)
[2020-05-01] MEDS: MINERAL OIL 1 ENEMA BTL RC SCH (22:17)
[2020-05-02] MEDS: MINERAL OIL 1 ENEMA BTL RC SCH ×7 (01:10→16:19)
[2020-05-02] MEDS: INSULIN LISPRO 100 UNITS/ML VIAL SC SCH ×2 (06:41→11:58)
[2020-05-02] MEDS ORDERED: LEVOTHYROXINE SODIUM 125 MCG TABLET PO SCH (07:00)
--- NOTE | 2020-05-02 09:28 | HPDIS ---
Chief Complaint - Chief Complaint Date of Service: 05/02/20 Time of Service: 09:10 Chief Complaint: constipation, abd pain History of Present Illness: 79-year-old female with history of moderate to severe dementia was brought into the ER by family members due to fairly severe abdominal pain secondary to stool impaction and constipation. ER physician and staff tried to disimpact her but was unsuccessful. Patient was admitted under observation to the floor to continue with treatment of this impaction. Patient had multiple enemas throughout the night and has had 4 stools. None of them are large but but combined they did relieve most for constipation pain in her belly was nontender and nondistended on exam this morning. Patient tolerated clear liquids for breakfast and was transitioned to a consistent carbohydrate diet at lunch which she also tolerated. Her VS have been stable, shes been afebrile. No lab work ordered while here. Medical History (Last Reviewed 05/01/20 @ 21:57 by Sudha Lund RN) Coronary artery disease involving absentee-shawnee coronary artery of absentee-shawnee heart without angina pectoris (Chronic) Onset Date: Unknown Incontinence of urine (Chronic) Onset Date: Unknown Hypertension (Chronic) Onset Date: Unknown Hyperlipemia (Chronic) Onset Date: Unknown Diabetes mellitus (Chronic) Onset Date: Unknown type [address] (Chronic) Onset Date: Unknown right ear Carotid artery disease (Chronic) Onset Date: Unknown Mediastinitis Onset Date: ~11/2014 Rigorously treated for mediastinitis secondary to a retained foreign body as well as 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 Non-ST elevated myocardial infarction Onset Date: Unknown Surgical History: Surgical History (Last Reviewed 05/01/20 @ 21:57 by Sudha Lund RN) H/O dilation and curettage Onset Date: Unknown H/O oophorectomy Onset Date: Unknown H/O thyroidectomy Onset Date: Unknown History of cataract surgery Onset Date: Unknown History of cochlear implant Onset Date: Unknown [facility] History of coronary artery bypass graft Onset Date: ~11/2014 LAW graft to the LAD saphenous vein graft to the diagonal, saphenous vein graft obtuse marginal, saphenous vein graft right distal coronary artery. 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 Absent: Nausea, Vomiting Additional Comments: Patient with dementia, history hard to obtain Immunizations: IMMUNIZATION HX Immunizations Up to Date Yes History of Influenza Vaccine Yes Hx Pneumococcal Vaccination Yes Allergies/Adverse Reactions: Allergies Allergy/AdvReac Type Severity Reaction Status Date / Time aspirin Allergy Intermediate BLEEDING Verified 05/01/20 12:56 ULCERS gabapentin AdvReac Intermediate HALLUCINATI Verified 05/01/20 12:56 ONS Home Medications: HOME MEDICATIONS * Patient uses [facility] pill pack service 0 .ROUTE .MEDSUPPLY #1 ea 07/23/19 [Last Taken Unknown] levothyroxine 125 mcg tablet 125 mcg PO DAILY #30 tab 02/18/20 [Last Taken Unknown] insulin glargine 100 unit/mL subcutaneous solution 20 unit SUBCUT QPM #10 ml 03/18/20 [Last Taken Unknown] insulin syringe-needle U-100 1 mL 31 gauge x 08/22" See Rx Instructions .ROUTE .MEDSUPPLY #100 ea 03/18/20 [Last Taken Unknown] alcohol swabs 1 pad TP DAILY #100 ea 03/25/20 [Last Taken Unknown] blood sugar diagnostic See Rx Instructions .ROUTE .MEDSUPPLY #100 ea 03/25/20 [Last Taken Unknown] blood-glucose meter See Rx Instructions .ROUTE .MEDSUPPLY #1 ea 03/25/20 [Last Taken Unknown] insulin glargine 100 unit/mL (3 mL) subcutaneous pen 40 unit SUBCUT QPM #12 ml 03/25/20 [Last Taken Unknown] lancets 31 gauge See Rx Instructions .ROUTE .MEDSUPPLY #100 ea 03/25/20 [Last Taken Unknown] pen needle, diabetic 31 gauge x 5/16" See Rx Instructions .ROUTE .MEDSUPPLY #50 ea 03/25/20 [Last Taken Unknown] Exam - Exam Vital Signs: Vital Signs - Last Taken Temp 36.5 C 05/02/20 06:00 Pulse 71 05/02/20 06:00 Resp 16 05/02/20 06:00 BP 90/60 05/02/20 06:00 Pulse Ox 98 05/02/20 06:00 Constitutional: Present: Alert, No distress, Elderly ENT Exam: Present: hard of hearing Eye Exam: bilateral eye: normal inspection, EOMI Neck: Present: non-tender, supple Back Exam: Present: no CVA tenderness Respiratory: Present: lungs clear, normal breath sounds Cardiovascular/Chest: Present: regular rate, rhythm, no murmur Abdomen: Present: soft, tender - mildly tender over LLQ. Absent: guarding, rigidity Skin Exam: Present: normal color, warm/dry Appearance: Present: impaired insight, impaired recent memory Eye contact: Present: cooperative, good eye contact Assessment/Plan - Narrative Narrative: 79-year-old female with dementia was admitted under observation for acute constipation and abdominal pain failure to disimpact her bowel while in the ER. Patient while here received multiple enemas on the floor which allowed her to have multiple bowel movements. Stool was hard. Patient following bowel movements had minimal discomfort and was tolerating p.o. intake well. Her vital signs been stable since she is been here and she been afebrile. No blood work ordered. Patient to be discharged later this afternoon as long as her clinical picture remains unchanged and she continues to feel well. - Assessment/Plan (1) Constipation Problem: Acute (2) Insulin dependent diabetes mellitus Problem: Acute (3) Fecal impaction in rectum Problem: Acute (4) Dementia Problem: Acute (1) Constipation Problem: Acute (2) Insulin dependent diabetes mellitus Problem: Acute (3) Fecal impaction in rectum Problem: Acute (4) Dementia Problem: Acute Hospital Course: 79-year-old female with dementia was admitted under observation for acute constipation and abdominal pain failure to disimpact her bowel while in the ER. Patient while here received multiple enemas on the floor which allowed her to have multiple bowel movements. Stool was hard. Patient following bowel movements had minimal discomfort and was tolerating p.o. intake well. Her vital signs been stable since she is been here and she been afebrile. No blood work ordered. Patient to be discharged as her clinical picture remains unchanged and she continues to feel well. No changes to her chronic medicines. Advised patient and patient's family to increase water intake and to make Metamucil daily part of her bowel regimen. Patient to follow with her PCP in 1 to 2 weeks. Procedures Performed: none Discharge Location: Home Disposition: Home self-care Condition: Stable Discharge Activity: Activity as tolerated, Other - Increase fluid intake to roughly 80 ounces of water a day Discharge Diet: Consistent carbs Referrals: Lokesh Steven DO [Primary Care Provider] - Two Weeks Problem Oriented Discharge Instructions to Patient/Family: Constipation, Adult, [id number]-[id number], Fecal Impaction Complete Home Medications List: Complete Home Medication List: * Patient uses [facility] pill pack service 0 .ROUTE .MEDSUPPLY #1 ea 07/23/19 levothyroxine 125 mcg tablet 125 mcg PO DAILY #30 tab 02/18/20 insulin glargine 100 unit/mL subcutaneous solution 20 unit SUBCUT QPM #10 ml 03/18/20 insulin syringe-needle U-100 1 mL 31 gauge x 08/22" See Rx Instructions .ROUTE .MEDSUPPLY #100 ea 03/18/20 alcohol swabs 1 pad TP DAILY #100 ea 03/25/20 blood sugar diagnostic See Rx Instructions .ROUTE .MEDSUPPLY #100 ea 03/25/20 blood-glucose meter See Rx Instructions .ROUTE .MEDSUPPLY #1 ea 03/25/20 insulin glargine 100 unit/mL (3 mL) subcutaneous pen 40 unit SUBCUT QPM #12 ml 03/25/20 lancets 31 gauge See Rx Instructions .ROUTE .MEDSUPPLY #100 ea 03/25/20 pen needle, diabetic 31 gauge x 5/16" See Rx Instructions .ROUTE .MEDSUPPLY #50 ea 03/25/20
[2020-05-02] MEDS ORDERED: INSULIN GLARGINE,HUM.REC.ANLOG 100 UNITS/ML VIAL SC SCH ×2 (09:30→17:00)
[2020-05-02 16:55] VITALS: BP 112/53
== END 2020-05-02 16:30 | disposition home or self-care (01) ==
LOC: MS 12:22 → ER 12:22 → MS 21:10
PROVIDERS: ADMIT Family Medicine; ATTEND Family Medicine